=== PATIENT | male | born 1990 | race American Indian/Alaskan Native ===

== ENCOUNTER 2019-01-31 12:23 | Emergency (ER) | payer SELFPAY ==
--- NOTE | 2019-01-31 12:33 | Emergency Department Report ---
Blank Doc - Documentation Documentation: This is a 28-year-old male that presents with nausea with abdominal pain. Has intermittent left groin pain. This initial assessment/diagnostic orders/clinical plan/treatment(s) is/are subject to change based on patient's health status, clinical progression and re- assessment by fellow clinical providers in the ED. Further treatment and workup at subsequent clinical providers discretion. Patient/guardians urged not to elope from the ED as their condition may be serious if not clinically assessed and managed. Initial orders include: 1- Patient sent to [facility] for further evaluation and treatment 2- labs 3- UA
[2019-01-31 12:36] VITALS: BP 130/80
[2019-01-31 12:56] LABS: Basophils # (Auto) 0.1 K/mm3 (0.0-0.1); Basophils % (Auto) 0.6 % (0.0-1.8); Eosinophils # (Auto) 0.7 K/mm3 (0.0-0.4); Hemoglobin 13.2 gm/dl (11.8-15.2); Lymphocytes # (Auto) 1.5 K/mm3 (1.2-5.4); Lymphocytes % (Auto) 10.9 % (13.4-35.0); Mean Corpuscular HGB Conc 32 % (32-34); Mean Corpuscular Volume 76 fl (84-94); Monocytes % (Auto) 7.3 % (0.0-7.3); Platelet Count 291 K/mm3 (140-440); Red Blood Count 5.38 M/mm3 (3.65-5.03); Red Cell Distribution Width 14.8 % (13.2-15.2)
[2019-01-31 13:10] LABS: Alanine Aminotransferase 19 units/L (7-56); BUN/Creatinine Ratio 8; Blood Urea Nitrogen 9 mg/dL (9-20); Calcium 9.1 mg/dL (8.4-10.2); Hemolysis Index 14
[2019-01-31 13:15] LABS: Bilirubin,Direct < 0.2 mg/dL (0-0.2)
--- NOTE | 2019-01-31 13:19 | Emergency Department Report ---
ED Abdominal Pain HPI - General Chief Complaint: Abdominal Pain Stated Complaint: ABD PAIN/INNER THIGH PAIN Time Seen by Provider: 01/31/19 12:32 Source: patient Mode of arrival: Ambulatory Limitations: No Limitations - History of Present Illness Initial Comments: Mr. Ontiveros is a healthy gentleman who presents with right upper quadrant abdominal pain for several days. Also has had intermittent bilateral groin pain for last several weeks. No association with eating or movement. Bilateral pain in the groin typically at night. Resolves with BC powder [id number] medication. Denies fever. Denies chest pain. Has had upper respiratory cold like symptoms for the last 1-2 days. MD Complaint: abdominal pain -: Gradual, week(s) (1) Radiation: RUQ Migration to: no migration Severity scale (0 -10): 8 Quality: cramping, sharp Consistency: intermittent, now resolved Improves With: nothing Worsens With: nothing Associated Symptoms: other (bilateral groin pain) - Related Data Allergies Allergy/AdvReac Type Severity Reaction Status Date / Time No Known Allergies Allergy Unverified 01/31/19 12:26 ED Review of Systems ROS: Stated complaint: ABD PAIN/INNER THIGH PAIN Other details as noted in HPI Comment: All other systems reviewed and negative Constitutional: denies: fever, malaise Respiratory: denies: cough Cardiovascular: denies: chest pain ED Past Medical Hx - Past Medical History Previous Medical History?: No - Surgical History Hx Appendectomy: Yes - Social History Smoking Status: Current Every Day Smoker Substance Use Type: None ED Physical Exam - General Limitations: No Limitations General appearance: alert, in no apparent distress - Head Head exam: Present: atraumatic, normocephalic - Eye Eye exam: Present: normal appearance - ENT ENT exam: Present: mucous membranes moist - Neck Neck exam: Present: normal inspection, full ROM - Respiratory Respiratory exam: Present: normal lung sounds bilaterally. Absent: respiratory distress, wheezes, rales, rhonchi - Cardiovascular Cardiovascular Exam: Present: regular rate, normal rhythm, normal heart sounds. Absent: systolic murmur, diastolic murmur, rubs, gallop - GI/Abdominal GI/Abdominal exam: Present: soft, normal bowel sounds. Absent: distended, tenderness, guarding, rebound - Rectal Rectal exam: Present: deferred - Extremities Exam Extremities exam: Present: normal inspection - Back Exam Back exam: Present: normal inspection - Neurological Exam Neurological exam: Present: alert, oriented X3 - Psychiatric Psychiatric exam: Present: normal affect, normal mood - Skin Skin exam: Present: warm, dry, intact, normal color. Absent: rash ED Course Vital Signs 01/31/19 01/31/19 12:34 13:52 Temperature 98.5 F Pulse Rate 111 H Respiratory 18 18 Rate Blood Pressure 130/80 O2 Sat by Pulse 98 99 Oximetry ED Medical Decision Making - Lab Data Result diagrams: 01/31/19 12:37 01/31/19 12:37 - Radiology Data Lesions involving the lungs, vertebra and acetabulum - Medical Decision Making Mr. Ontiveros presents with abdominal pain and pelvic pain. CT scan of the abdomen and pelvis revealed lesions in the lungs, vertebrae and acetabulum. Differential diagnoses includes malignancy. I had an extensive discussion with the possibility of malignancy for this patient. I have provided a copy of CT scan report. He understands to follow-up with outside clinic to which he was referred. He's had mild intermittent testicular discomfort. He denies any pain in the scrotum or change in size. He politely declined exam. I prescribed ibuprofen and [place] for pain. Critical care attestation.: If time is entered above; I have spent that time in minutes in the direct care of this critically ill patient, excluding procedure time. ED Disposition Clinical Impression: Lung nodules, Bone lesion Disposition: DC-01 TO HOME OR SELFCARE Is pt being admited?: No Does the pt Need Aspirin: No Condition: Stable Additional Instructions: Please see a primary doctor. You have a high risk of cancer. Referrals: AURELIO WINTERS MD [Primary Care Provider] - 3-5 Days Forms: Work/School Release Form(ED)
--- NOTE | 2019-01-31 14:26 | Cat Scan Report ---
CT ABDOMEN PELVIS WITHOUT CONTRAST: HISTORY: Right upper quadrant pain, bilateral groin pain. COMPARISON: none. TECHNIQUE: Helical CT in 1.25mm intervals without IV contrast. Sagittal and coronal reconstructions. FINDINGS: This exam is slightly limited by patient motion artifact. Lung bases: There are numerous tiny nodular densities in both lower lung zones. These nodules measure up to 5 mm in diameter. The etiology of these are unclear. No large mass, consolidation or pleural effusion. Heart size is normal. Liver: Normal. Biliary system: Normal. Pancreas: Normal. Spleen: Normal. Kidneys/ureters/bladder: Normal. Adrenal glands: Normal. Aorta: Normal. Intestines: Limited without oral contrast. A few diverticula are identified in the ascending colon. No evidence for acute inflammation. No bowel obstruction. Appendix: Appendectomy changes are suspected. Pelvic viscera: Normal. Ascites: None. Adenopathy: None. Musculoskeletal: Intact. Mixed sclerotic lytic lesions are identified in the left T11 pedicle, left L4 vertebral body and left acetabulum. These have the appearance of small bone hemangioma is or possibly subchondral cysts. Very small bilateral inguinal hernias containing fat are identified, left greater than right. IMPRESSION: No acute processes identified in the abdomen or pelvis. Numerous tiny nodular densities are noted in the lower lung zones of uncertain etiology. A neoplastic process is difficult to exclude but is thought unlikely. This may be inflammatory in nature. Minimal diverticulosis of the proximal colon. Small fat-containing inguinal hernias, left greater than right.
== END 2019-01-31 15:39 | disposition home or self-care (01) ==
LOC: ED 12:23
DX: R91.1 Solitary pulmonary nodule (principal); M89.9 Disorder of bone, unspecified; F17.200 Nicotine dependence, unspecified, uncomplicated; Z90.49 Acquired absence of other specified parts of digestive tract
CPT/HCPCS: 36415; 74176; 80048; 80076; 83690; 85025

== ENCOUNTER 2019-07-26 22:28 | Emergency (ER) | payer SELFPAY ==
--- NOTE | 2019-07-26 22:45 | Event Note ---
ED Screening Note ED Screening Note: This initial assessment/diagnostic orders/clinical plan/treatment(s) is/are subject to change based on patients health status, clinical progression and re- assessment by fellow clinical providers in the ED. Further treatment and workup at subsequent clinical providers discretion. Patient/guardian urged not to elope from the ED as their condition may be serious if not clinically assessed and managed. Initial orders include: Pt states that he has a severe sore throat, difficulty swallowing and a produ ctive cough x 1 day.
--- NOTE | 2019-07-26 23:03 | Emergency Department Report ---
ED General Adult HPI - General Chief complaint: Sore Throat Stated complaint: THROAT PAIN Time Seen by Provider: 07/26/19 22:57 Source: patient Mode of arrival: Ambulatory Limitations: No Limitations - History of Present Illness Initial comments: is a 28-year-old male that since emergency room with complaints of throat pain and difficulty swallowing and cough times one day. Patient states symptoms started about 9 AM this morning. Patient states symptoms are worsening. Patient states he has a low-grade fever. Patient denies chills. Patient states his throat pain is a 10 out of 10 and is worsening. Patient states pain is not ready. Patient denies neck pain. Patient denies blurred vision. Patient denies headache. Patient denies shortness of breath and chest pain. -: Sudden Radiation: non-radiation Severity scale (0 -10): 10 Quality: stabbing Consistency: constant Improves with: rest Worsens with: other (swallowing) Associated Symptoms: cough. denies: confusion, chest pain, diaphoresis, headaches, loss of appetite, malaise, nausea/vomiting, rash, seizure, shortness of breath, syncope, weakness - Related Data Previous Rx's Medication Instructions Recorded Last Taken Type HYDROcodone/APAP 5-325 [[place] 1 each PO Q6HR PRN #10 tablet 01/31/19 Unknown Rx 5/325] Ibuprofen [Ibuprofen 800] 800 mg PO Q6H PRN #15 tablet 01/31/19 Unknown Rx Sulfamethoxazole/Trimethoprim 1 each PO BID 10 Days #20 tablet 07/27/19 Unknown Rx [Bactrim DS TAB] methylPREDNISolone [Medrol 4MG 4 mg PO DAILY 6 Days #1 tab.ds.pk 07/27/19 Unknown Rx DOSEPAK (21 tabs)] Allergies Allergy/AdvReac Type Severity Reaction Status Date / Time No Known Allergies Allergy Unverified 01/31/19 12:26 ED Review of Systems ROS: Stated complaint: THROAT PAIN Other details as noted in HPI Constitutional: fever Eyes: denies: eye pain, eye discharge, vision change ENT: throat pain. denies: ear pain Respiratory: cough. denies: shortness of breath, wheezing Cardiovascular: denies: chest pain, palpitations Endocrine: no symptoms reported Gastrointestinal: denies: abdominal pain, nausea, diarrhea Genitourinary: denies: urgency, dysuria Musculoskeletal: denies: back pain, joint swelling, arthralgia Skin: denies: rash, lesions Neurological: denies: headache, weakness, paresthesias Psychiatric: denies: anxiety, depression Hematological/Lymphatic: denies: easy bleeding, easy bruising ED Past Medical Hx - Past Medical History Previous Medical History?: No - Surgical History Past Surgical History?: Yes Hx Appendectomy: Yes - Family History Family history: no significant - Social History Smoking Status: Never Smoker Substance Use Type: None - Medications Home Medications: Home Medications Medication Instructions Recorded Confirmed Last Taken Type HYDROcodone/APAP 5-325 [[place] 1 each PO Q6HR PRN #10 tablet 01/31/19 Unknown Rx 5/325] Ibuprofen [Ibuprofen 800] 800 mg PO Q6H PRN #15 tablet 01/31/19 Unknown Rx Sulfamethoxazole/Trimethoprim 1 each PO BID 10 Days #20 tablet 07/27/19 Unknown Rx [Bactrim DS TAB] methylPREDNISolone [Medrol 4MG 4 mg PO DAILY 6 Days #1 tab.ds.pk 07/27/19 Unknown Rx DOSEPAK (21 tabs)] ED Physical Exam - General Limitations: No Limitations General appearance: alert, in no apparent distress - Head Head exam: Present: atraumatic, normocephalic - Eye Eye exam: Present: normal appearance - ENT ENT exam: Present: mucous membranes moist, TM's normal bilaterally, normal external ear exam - Expanded ENT Exam Expanded Throat exam: Positive: tonsillar erythema, other (throat red, and the stitches no exudate noted) - Neck Neck exam: Present: normal inspection - Respiratory Respiratory exam: Present: normal lung sounds bilaterally. Absent: respiratory distress - Cardiovascular Cardiovascular Exam: Present: regular rate, normal rhythm. Absent: systolic murmur, diastolic murmur, rubs, gallop - GI/Abdominal GI/Abdominal exam: Present: soft, normal bowel sounds. Absent: distended, tenderness, guarding - Rectal Rectal exam: Present: deferred - Extremities Exam Extremities exam: Present: normal inspection - Back Exam Back exam: Present: normal inspection - Neurological Exam Neurological exam: Present: alert, oriented X3 - Psychiatric Psychiatric exam: Present: normal affect, normal mood - Skin Skin exam: Present: warm, dry, intact, normal color. Absent: rash ED Course Vital Signs 07/26/19 07/27/19 22:39 02:55 Temperature 100.1 F H 99.0 F Pulse Rate 101 H 80 Respiratory 18 16 Rate Blood Pressure 125/70 Blood Pressure 132/74 [Right] O2 Sat by Pulse 98 99 Oximetry - Reevaluation(s) Reevaluation #1: I discussed all results with patient. I discussed plan of care with patient. Patient agrees with plan of care. Patient is stable for discharge. Patient will be discharged home. Patient given discharge instructions. Patient voiced understanding of discharge instructions. 07/27/19 01:52 ED Medical Decision Making - Lab Data Result diagrams: 07/27/19 00:19 - Medical Decision Making Condition is a 28-year-old female that presents emergency room with complaints of sore throat times one day. Patient on exam found to have extremely irritated throat. Patient found to be febrile. Patient had labs. Patient's labs essentially unremarkable except for elevated WBC which consistent with a bacterial pharyngitis. Patient given antibiotics and steroids. Patient responded well to treatment. Patient also given Tylenol Motrin for his fever. Patient pain reduced with therapy. Patient given antibiotics steroid prescription. Patient also instructed the Cepacol. Patient stable for discharge. Patient discharged home. - Differential Diagnosis strep, flu, fever, mono, pharyngitis, sore throat, Critical care attestation.: If time is entered above; I have spent that time in minutes in the direct care of this critically ill patient, excluding procedure time. ED Disposition Clinical Impression: Sore throat, Cough Pharyngitis Qualifiers: Pharyngitis/tonsillitis etiology: other specified organisms Qualified Code(s): J02.8 - Acute pharyngitis due to other specified organisms Fever Qualifiers: Fever type: unspecified Qualified Code(s): R50.9 - Fever, unspecified Disposition: DC-01 TO HOME OR SELFCARE Is pt being admited?: No Does the pt Need Aspirin: No Condition: Stable Instructions: Benzocaine/Menthol (By mouth), Pharyngitis (ED), Fever in Adults (ED) Additional Instructions: Patient to follow-up with primary care in 2-3 days. Patient to be off work for 2 days. Patient to return to ER if condition worsens. Patient to rest. Patient to increase water. Patient to take meds as directed. Patient's take Tylenol or ibuprofen when necessary for pain. Prescriptions: Sulfamethoxazole/Trimethoprim [Bactrim DS TAB] 1 each PO BID 10 Days #20 tablet methylPREDNISolone [Medrol 4MG DOSEPAK (21 tabs)] 4 mg PO DAILY 6 Days #1 tab.ds.pk Referrals: PRIMARY CARE, [Primary Care Provider] - 2-3 Days Forms: Work/School Release Form(ED) Time of Disposition: 01:58
[2019-07-26] MEDS ORDERED: ACETAMINOPHEN 500 MG TAB PO ONE (23:38)
[2019-07-27] MEDS: IBUPROFEN 600 MG TAB PO ONE ×2 (00:16→00:25)
[2019-07-27 00:47] LABS: Basophils # (Auto) 0.1 K/mm3 (0.0-0.1); Basophils % (Auto) 0.7 % (0.0-1.8); Eosinophils # (Auto) 0.6 K/mm3 (0.0-0.4); Eosinophils % (Auto) 4.6 % (0.0-4.3); Hematocrit 41.1 % (35.5-45.6); Lymphocytes # (Auto) 1.3 K/mm3 (1.2-5.4); Lymphocytes % (Auto) 9.3 % (13.4-35.0); Mean Corpuscular HGB Conc 32 % (32-34); Mean Corpuscular Volume 77 fl (84-94); Monocytes # (Auto) 1.4 K/mm3 (0.0-0.8); Monocytes % (Auto) 9.8 % (0.0-7.3); Platelet Count 244 K/mm3 (140-440); Red Blood Count 5.33 M/mm3 (3.65-5.03); Red Cell Distribution Width 15.2 % (13.2-15.2)
[2019-07-27] MEDS ORDERED: methylPREDNISolone Sod Succinate 125 MG/2 ML INJ IM ONE (01:52)
[2019-07-27] MEDS ORDERED: CLINDAMYCIN 150 MG/ML VIAL 6 ML IM ONE (01:52)
[2019-07-27 02:56] VITALS: BP 132/74
== END 2019-07-27 02:56 | disposition home or self-care (01) ==
LOC: ED 22:28
DX: J02.9 Acute pharyngitis, unspecified (principal); Z90.89 Acquired absence of other organs
CPT/HCPCS: 36415; 85025; 86308; 87116; 87400; 87430; J2930; 96372

== ENCOUNTER 2020-01-17 18:55 | Emergency (ER) | payer BC ==
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
[2020-01-17 19:19] VITALS: BP 139/93
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
[2020-01-17] MEDS ORDERED: IBUPROFEN 800 MG TAB PO ONE (22:25)
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
== END 2020-01-17 23:15 | disposition home or self-care (01) ==
LOC: ED 18:55
DX: S39.012A Strain of muscle, fascia and tendon of lower back, initial encounter (principal); S16.1XXA Strain of muscle, fascia and tendon at neck level, initial encounter; F17.200 Nicotine dependence, unspecified, uncomplicated; V49.9XXA Car occupant (driver) (passenger) injured in unspecified traffic accident, initial encounter; Y93.89 Activity, other specified; Y99.8 Other external cause status; Y92.410 Unspecified street and highway as the place of occurrence of the external cause
CPT/HCPCS: 72040; 72100; 99283

== ENCOUNTER 2021-06-03 20:55 | Emergency (ER) | payer BC | END 2021-06-03 23:14 | disposition left against medical advice (07) | LOC: ED 20:55 | DX: K13.79 Other lesions of oral mucosa (principal); Z53.21 Procedure and treatment not carried out due to patient leaving prior to being seen by health care provider ==